=== PATIENT | female | born 1985 | race African-American/Black ===

== ENCOUNTER 2020-10-20 15:19 | Emergency (ER) | payer OTHER, SELFPAY ==
[2020-10-20 15:26] VITALS: BP 146/96; PULSE 75; RESP 16; TEMP 36.7; O2SAT 100
--- NOTE | 2020-10-20 15:54 | ED.SKABFB ---
HPI - Skin/Abscess/Foreign Bdy General Chief complaint: Skin/Abscess/Foreign Body Stated complaint: rash on leg Time Seen by Provider: 10/20/20 15:45 Source: patient Mode of arrival: ambulatory Limitations: no limitations History of Present Illness HPI narrative: Anna Mai is a 35 yo female with no PMH who [facility] with a rash on her upper left leg and left lower back that started a day and a half ago. She states rash started with numbness and change in sensation in her upper thigh and then it began to get somewhat, area on her back is a little more tender Related Data Allergies Allergy/AdvReac Type Severity Reaction Status Date / Time bacitracin Allergy Unknown Rash Verified 10/20/20 15:25 gramicidin D Allergy Unknown Rash Verified 10/20/20 15:25 polymyxin B Allergy Unknown Rash Verified 10/20/20 15:25 NEOMYCIN SULFATE Allergy Unknown Rash Uncoded 10/20/20 15:25 POLYMYXIN B SULFATE Allergy Unknown Rash Uncoded 10/20/20 15:25 Review of Systems Review of Systems: CONSTITUTIONAL: Denies fever, chills, sweats. EYES: Denies visual changes, redness, discharge. ENT: Denies rhinorrhea, congestion, sore throat, otalgia. CARDIOVASCULAR: Denies chest pain, palpitations, edema. RESPIRATORY: Denies dyspnea, wheezing, cough GASTROINTESTINAL: Denies abdominal pain, nausea, vomiting, diarrhea. GENITOURINARY: Denies dysuria, hematuria, abnormal discharge SKIN: Rash on left upper thigh and left lower back NEUROLOGIC: Denies numbness, or focal weakness. PSYCHIATRIC: Denies anxiety or depression. [facility] Past Medical History Medical History No acute medical problems Family History Family History Other No acute medical problems Social History Social History (Updated 10/20/20 @ 15:59 by Le Abdi CNP) Smoking status: Never smoker Alcohol intake: current Comments At time of signature, I agree with nursing past medical, surgical, social and family history. There is no relevant family history pertinent to the presenting complaint. Exam Narrative: GENERAL: This is a well-nourished, well-developed patient, in mild distress. HEAD: normocephalic, atraumatic. EYES: . Sclera clear/white. Vision is grossly intact. EARS: External ears normal. Hearing grossly intact. NOSE: External nose normal without nasal discharge, nares without redness, no rhinorrhea. THROAT: Mucous membranes moist, NECK: Neck supple, non-tender CARDIOVASCULAR: Regular rate and rhythm without murmurs, gallops, or rubs. RESPIRATORY: Clear to auscultation. Breath sounds equal bilaterally. No wheezes, rales, or rhonchi. GASTROINTESTINAL: Abdomen soft, non-tender, SKIN: warm, intact with red papular raised rash on left upper thigh and left lower back which is sensitive to touch NEURO: awake, alert, and oriented to person, place and time. There were no obvious focal neurologic abnormalities. Steady gait EXTREMITIES: Normal range of motion. BACK: Nontender without deformity Course Course Emergency Course: [facility] with rash on her left upper thigh and lower back Appears to be shingles treated with valacyclovir instructions given to patient infection control and taking medication Vital Signs Vital signs: Vital Signs Temperature 98.1 F 10/20/20 15:26 Pulse Rate 75 10/20/20 15:26 Respiratory Rate 16 10/20/20 15:26 Blood Pressure 146/96 H 10/20/20 15:26 Pulse Oximetry 100 10/20/20 15:26 Temperature 98.1 F 10/20/20 15:26 Pulse Rate 75 10/20/20 15:26 Respiratory Rate 16 10/20/20 15:26 Blood Pressure 146/96 H 10/20/20 15:26 Pulse Oximetry 100 10/20/20 15:26 MDM - Skin/Abscess/Foreign Bdy Differential Diagnosis Differential diagnosis: Likely abscess of skin or subcutaneous tissue, herpes zoster, insect bites, contact dermatitis and other Critical Care Time Critical Care Time C
== END 2020-10-20 16:17 | disposition home or self-care (01) ==
PROVIDERS: Emergency Provider Nurse Practitioner
DX: B02.9 Zoster without complications (principal)
CPT/HCPCS: 99203; G0463

== ENCOUNTER 2021-05-12 18:35 | Emergency (ER) | payer OTHER, SELFPAY ==
[2021-05-12 18:47] VITALS: BP 154/94; PULSE 87; RESP 16; TEMP 36.2; O2SAT 100
--- NOTE | 2021-05-12 18:48 | ED.URI ---
HPI - URI/Sore Throat General Chief Complaint: Upper Respiratory Infection Stated Complaint: cold symptoms, ear numbness Time Seen by Provider: 05/12/21 18:49 Source: patient, RN notes reviewed and old records reviewed Mode of arrival: ambulatory Limitations: no limitations History of Present Illness HPI Narrative: 35 year old female who presents to [facility] with complaints of sore throat for the past 2-3 days with ears feeling clogged today. Patient also states some cough with thick brownish looking mucous production. Patient reports some sinus congestion and drainage and has been taking Sudafed, NyQuil and also Ibuprofen for her symptoms with out resolution of her symptoms.Patient denies any fevers, chills or sweats and denies any body aches, reports that she has had COVID immunizations. Patient rates her throat pain as 7-8/10 which is aggravated by swallowing, denies any shortness of breath. MD elicited complaint: sore throat Onset (ago): day(s) (3) Consistency: constant Severity: moderate Pain scale (0-10): 7 Description of mucous: clear Exacerbating factors: swallowing Treatments prior to arrival: ibuprofen, cold medicine and other (Sudafed) Related Data Allergies Allergy/AdvReac Type Severity Reaction Status Date / Time bacitracin Allergy Unknown Rash Verified 05/12/21 18:44 gramicidin D Allergy Unknown Rash Verified 05/12/21 18:44 polymyxin B Allergy Unknown Rash Verified 05/12/21 18:44 NEOMYCIN SULFATE Allergy Unknown Rash Uncoded 05/12/21 18:44 POLYMYXIN B SULFATE Allergy Unknown Rash Uncoded 05/12/21 18:44 Review of Systems Review of Systems: CONSTITUTIONAL: Denies fever, chills, or sweats. EYES: Denies visual changes, redness, or discharge. ENT: Positive for rhinorrhea, congestion, sore throat, bilateral ear pressure . CARDIOVASCULAR: Denies chest pain, palpitations, or edema. RESPIRATORY: Positive for occasional cough denies dyspnea. GASTROINTESTINAL: Denies abdominal pain, nausea, vomiting, or diarrhea. GENITOURINARY: Denies dysuria or hematuria. SKIN: Denies rash or itching. MUSCULOSKELETAL: Denies back pain, joint pain, or myalgia. NEUROLOGIC: Denies headache, numbness, or weakness. PSYCHIATRIC: Denies anxiety or depression. All systems reviewed & are unremarkable except as noted in HPI and below PMFSH Past Medical History Medical History (Updated 05/12/21 @ 19:04 by Yazmin Garcia NP) No acute medical problems Surgical History Surgical History (Updated 05/12/21 @ 18:50 by Yazmin Garcia NP) H/O tubal ligation Family History Family History Other No acute medical problems Social History Social History (Updated 05/12/21 @ 19:15 by Yazmin Garcia NP) Smoking status: Never smoker Alcohol intake: current Substance use: never Living arrangements: with family Gender identity (if verbalized by the patient): Female Exam Narrative: GENERAL: Well-appearing, well-nourished, and in no acute distress. HEAD: Normocephalic, atraumatic. EYES: PERRLA and EOMI. ENT: Nares with clear rhinorrhea no epistaxis. Mucous membranes moist. TM;s normal with dull light reflex, throat red with no lesions or exudates or tonsil swelling, painful swallowing NECK: Supple. no lymphadenopathy CHEST: Clear to auscultation. No respiratory distress, SAO2 100% on room air,cough with some expectoration of brownish tinged mucous, no tachypnea noted HEART: Regular rate and rhythm. No murmur heard. Normal peripheral pulses. ABDOMEN: Soft, nontender, nondistended, normal active bowel sounds. EXTREMITIES: Normal range of motion. No edema. SKIN: Warm, dry, no rash. NEURO: No focal deficits. Alert and oriented x3. Course Course Level of Care: Express Care Visit Vital Signs Vital signs: Vital Signs Temperature 36.2 C L 05/12/21 18:47 Pulse Rate 87 05/12/21 18:47 Respiratory Rate 16 05/12/21 18:47 Blood Pressure 154/94 H 05/12/21 18:47 Pulse Oxi
== END 2021-05-12 19:08 | disposition home or self-care (01) ==
PROVIDERS: Emergency Provider Registered Nurse
DX: J06.9 Acute upper respiratory infection, unspecified (principal); J02.9 Acute pharyngitis, unspecified; R05.9 Cough, unspecified
CPT/HCPCS: 87081; 87880; 99213; G0463

== ENCOUNTER 2023-05-06 08:04 | Emergency (ER) | payer BC, SELFPAY ==
[2023-05-06 08:11] VITALS: BP 140/106; PULSE 77; RESP 16; TEMP 36.7; O2SAT 99
--- NOTE | 2023-05-06 08:11 | ED.URI ---
HPI - URI/Sore Throat General Chief Complaint: Upper Respiratory Infection Stated Complaint: HEADACHE/SINUS DRAINAGE/LOSING VOICE/CONGESTION Time Seen by Provider: 05/06/23 08:28 Source: patient and RN notes reviewed Mode of arrival: ambulatory Limitations: no limitations History of Present Illness HPI Narrative: 37-year-old female presents with concern for 6 day history of sinus congestion and drainage. Reports she is now feeling left ear pain, pressure, fullness with muffled hearing. She reports she had a fever the 1st few days of illness that has resolved. She has been taking Sudafed MD elicited complaint: sinus pain and other (ear pain) Related Data Allergies Allergy/AdvReac Type Severity Reaction Status Date / Time bacitracin Allergy Unknown Rash Verified 05/06/23 08:36 gramicidin D Allergy Unknown Rash Verified 05/06/23 08:36 polymyxin B Allergy Unknown Rash Verified 05/06/23 08:36 NEOMYCIN SULFATE Allergy Unknown Rash Uncoded 05/06/23 08:36 POLYMYXIN B SULFATE Allergy Unknown Rash Uncoded 05/06/23 08:36 Review of Systems Review of Systems: CONSTITUTIONAL: Denies malaise, chills, sweats, or fever. EYES: Denies visual changes, redness, or discharge. ENT: Reports rhinorrhea, congestion, sinus pain, otalgia CARDIOVASCULAR: Denies chest pain, palpitations, or edema. RESPIRATORY: Reports cough. Denies dyspnea. GASTROINTESTINAL: Denies abdominal pain, nausea, vomiting, diarrhea SKIN: Denies rash or itching. MUSCULOSKELETAL: Denies myalgia. NEUROLOGIC: Denies headache. All systems reviewed & are unremarkable except as noted in HPI and below PMFSH Past Medical History Medical History (Updated 05/06/23 @ 08:44 by Verónica Fitch NP) No acute medical problems Surgical History Surgical History (Updated 05/12/21 @ 18:50 by Yazmin Garcia NP) H/O tubal ligation Family History Family History Other No acute medical problems Social History Social History (Updated 05/12/21 @ 19:15 by Yazmin Garcia NP) Smoking status: Never smoker Alcohol intake: current Substance use: never Living arrangements: with family Gender identity (if verbalized by the patient): Female Comments At time of signature, agree with nursing past medical, surgical, social and family history. There is no relevant family history pertinent to the presenting complaint Exam Narrative: GENERAL: Well-appearing, well-nourished, and in no acute distress. HEAD: Normocephalic EYES: PERRLA, conjunctivae clear ENT: Nares clear, turbinates edematous and erythematous, clear discharge. Mucous membranes moist. TM erythematous dull light reflex on the right, erythematous and slightly bulging on the left; no tragal tenderness. Oropharynx not erythematous without lesions. Tonsils not enlarged and without exudate, no drooling, no hoarseness, no trismus, uvula midline. NECK: Supple. No lymphadenopathy CHEST: Clear to auscultation, breath sounds equal. No wheezing, rhonchi, rales, or stridor. No respiratory distress, speaks in full sentences. HEART: Regular rate and rhythm. No murmur heard. SKIN: Warm, dry, no rash. NEURO: Alert and oriented x3. PSYCH: Normal mood and affect Course Course Emergency Course: Patient is aware of diagnosis, understands and agrees to treatment plan. Anticipatory guidance given. Patient agrees to follow-up as directed and is aware of reasons to seek care at the emergency department. Portions of this record may have been created with voice recognition software Level of Care: Express Care Visit Vital Signs Vital signs: Reviewed. MDM - URI/Sore Throat MDM Narrative Medical decision making narrative: Differential diagnosis considered: Singh virus, strep pharyngitis, allergic rhinitis, upper respiratory tract infection, sinusitis, rhinosinusitis, nasopharyngitis. viral pharyngitis, otitis media, otitis externa, pneumonia, bronchitis, viral cough syndr
== END 2023-05-06 08:50 | disposition home or self-care (01) ==
PROVIDERS: Emergency Provider Nurse Practitioner
DX: H66.92 Otitis media, unspecified, left ear (principal)
CPT/HCPCS: 99213; G0463

== ENCOUNTER 2023-07-16 18:27 | Emergency (ER) | payer BC, SELFPAY ==
[2023-07-16 18:37] VITALS: BP 162/91; PULSE 88; RESP 16; TEMP 36.6; O2SAT 100
--- NOTE | 2023-07-16 18:39 | ED.FEMALEGU ---
HPI - Female Genitourinary General Chief complaint: Urogenital-Female Stated complaint: VAGINAL ITCHING/BURNING/DISCHARGE Time Seen by Provider: 07/16/23 18:40 Source: patient, RN notes reviewed and old records reviewed Mode of arrival: ambulatory Limitations: no limitations History of Present Illness HPI Narrative: 38 year old female with complaints of white thin vaginal discharge with some burning and itching for the past 4 days. Patient reports that she would like to have STD testing done and also checked for Bacterial vaginosis. Patient initially thought she might have yeast infection but no clumpy white discharge. Patient reports recent change in bath products. Patient reports no new sexual partners. Patient denies any burning with urination or any abdominal or suprapubic pain or CVA tenderness, reports no fevers. MD elicited complaint: other (white discharge vaginally with burning) Onset (ago): day(s) (4) Location of symptoms: vaginal Severity: mild Vaginal discharge: white Vaginal bleeding: none Treatment prior to arrival: none Related Data Allergies Allergy/AdvReac Type Severity Reaction Status Date / Time bacitracin Allergy Unknown Rash Verified 07/16/23 18:36 gramicidin D Allergy Unknown Rash Verified 07/16/23 18:36 polymyxin B Allergy Unknown Rash Verified 07/16/23 18:36 NEOMYCIN SULFATE Allergy Unknown Rash Uncoded 07/16/23 18:36 POLYMYXIN B SULFATE Allergy Unknown Rash Uncoded 07/16/23 18:36 Review of Systems Review of Systems: CONSTITUTIONAL: Denies fever, chills, or sweats. CARDIOVASCULAR: Denies chest pain, palpitations, or edema. RESPIRATORY: Denies cough or dyspnea. GASTROINTESTINAL: Denies abdominal pain, nausea, vomiting, or diarrhea. GENITOURINARY: Reports burning and itching vaginally, denies any dysuria, frequency, urgency of urination. Denies flank pain or hematuria. SKIN: Denies rash or itching. MUSCULOSKELETAL: Denies back pain or myalgia. Denies CVA tenderness NEUROLOGIC: Denies headache All systems reviewed & are unremarkable except as noted in HPI and below PMFSH Past Medical History Medical History No acute medical problems Surgical History Surgical History H/O tubal ligation Family History Family History Other No acute medical problems Social History Social History Smoking status: Never smoker Alcohol intake: current Substance use: never Living arrangements: with family Gender identity (if verbalized by the patient): Female Comments At time of signature, agree with nursing past medical, surgical, social and family history. There is no relevant family history pertinent to the presenting complaint Exam Narrative: GENERAL: Well-appearing, well-nourished, and in no acute distress. HEAD: Normocephalic, atraumatic. NECK: Supple. no lymphadenopathy CHEST: Clear to auscultation. No respiratory distress.SAO2 100% on room air HEART: Regular rate and rhythm. No murmur heard. Normal peripheral pulses. ABDOMEN: Soft, nontender, nondistended, normal active bowel sounds. No CVA tenderness reports vaginal discharge white thin with some itch EXTREMITIES: Normal range of motion. No edema. SKIN: Warm, dry, no rash. NEURO: No focal deficits. Alert and oriented x3. Course Course Emergency Course: Patient is aware of diagnosis, understands and agrees to treatment plan.? Anticipatory guidance given.? Patient agrees to follow-up as directed and is aware of reasons to seek care at the emergency department. Portions of this record may have been created with voice recognition software Level of Care: Express Care Visit Vital Signs Vital signs: Vital Signs Temperature 36.6 C 07/16/23 18:37 Pulse Rate 88 07/16/23 18:37 Respiratory Rate 16
[2023-07-17 20:13] LABS: Trichomonas Vag PCR NOT DETECTED (NOT DETECTE)
[2023-07-17 20:36] LABS: Chlamydia trachomatis NOT DETECTED (NOT DETECTE); Neisseria gonorrhoeae PCR NOT DETECTED (NOT DETECTE)
[2023-07-18 19:43] LABS: Bacterial Vaginosis POSITIVE (NEGATIVE)
== END 2023-07-16 19:24 | disposition home or self-care (01) ==
PROVIDERS: Emergency Provider Registered Nurse
DX: N76.0 Acute vaginitis (principal); Z20.822 Contact with and (suspected) exposure to COVID-19
CPT/HCPCS: 81513; 87491; 87591; 87661; 99214; G0463